=== PATIENT | female | born 1980 | race Caucasian/White ===

== ENCOUNTER 2016-08-11 18:52 | Emergency (ER) | payer MEDICAID ==
[~2016-08-11] VITALS: Ht 160 cm; Wt 85.7 kg
[~2016-08-11 18:52] MED LIST: BACT800T5 PO; HYDR-3533 PO; PHEN-426 PO; PROM25R PR; TYLE3 PO; XANA1TAB6 PO
[2016-08-11 19:06] VITALS: BP 132/90; PULSE 125; RESP 18; TEMP 98.4; O2SAT 98
[2016-08-11] MEDS ORDERED: TRAM1CAP21 PO (20:37)
[2016-08-11] MEDS ORDERED: XANA0.5T2 PO (20:37)
--- NOTE | 2016-08-11 20:58 | PD ---
HPI Chief Complaint: GI Complaint Time Seen by Provider: 20:47 Travel History International Travel<30 days: No Contact w/Intl Traveler<30days: No Traveled to known affect area: No History of Present Illness HPI The patient is a 35-year-old female that complains of bilateral flank pain, left greater than right for the past few days. She has had nausea and vomiting but has not recorded a fever at home. She denies any dysuria, frequency or urgency. She states there is no possibility of . The patient states she is on pain management with tramadol ER. PFSH Past Medical History Anxiety: Yes Diminished Hearing: No Musculoskeletal: Yes (chronic backpain) Respiratory: Yes (ASTHMA) Influenza Vaccination: No ?: Not LMP: 07/27/16 Tubal Ligation: Yes Past Surgical History Section: Yes (2014) Gynecologic Surgery: Yes (TUBAL LIGATION) Social History Alcohol Use: Yes (ocassional) Tobacco Use: No Substance Use: Yes (MARIJUANA coassional) Allergies-Medications (Allergen,Severity, Reaction): Coded Allergies: No Known Allergies (Unverified , 08/11/16) Reported Meds & Prescriptions Reported Meds & Active Scripts Active Reported Xanax Xr 24 HR (Alprazolam) 0.5 Mg Tab 0.5 Mg PO DAILY Take tablet intact, preferably in the morning. Tramadol ER 24 HR (Tramadol HCl) 100 Mg Caper 100 Mg PO DAILY Review of Systems Except as stated in HPI: all other systems reviewed are Neg Physical Exam Narrative GENERAL: The patient is alert, oriented 3 in moderate apparent distress with her bilateral flank pain. Her vital signs show heart rate 125 with blood pressure 132/90 but the rest the vital signs are normal. SKIN: Focused skin assessment warm/dry. HEAD: Atraumatic. Normocephalic. EYES: Pupils equal and round. No scleral icterus. No injection or drainage. ENT: No nasal bleeding or discharge. Mucous membranes pink and moist. NECK: Trachea midline. No JVD. CARDIOVASCULAR: Regular rate and rhythm. No murmur appreciated. RESPIRATORY: No accessory muscle use. Clear to auscultation. Breath sounds equal bilaterally. GASTROINTESTINAL: Abdomen soft, with tenderness over the left flank posteriorly and left suprapubic area and, to much lesser extent right flank, nondistended. Hepatic and splenic margins not palpable. No guarding or rebound is present. MUSCULOSKELETAL: No obvious deformities. No clubbing. No cyanosis. No edema. NEUROLOGICAL: Awake and alert. No obvious cranial nerve deficits. Motor grossly within normal limits. Normal speech. PSYCHIATRIC: The patient is anxious; insight and judgment normal. Data Data Last Documented VS Vital Signs Date Time Temp Pulse Resp B/P Pulse Ox O2 Delivery O2 Flow Rate FiO2 08/11/16 19:06 98.4 125 18 132/90 98 Orders Urinalysis - C+S If Indicated (08/11/16 20:47) Complete Blood Count With Diff (08/11/16 20:48) Basic Metabolic Panel (Bmp) (08/11/16 20:48) Ed Urine Pregnancytest Poc (08/11/16 20:48) Drug Screen, Random Urine (08/11/16 20:48) Ketorolac Inj (Toradol Inj) (08/11/16 21:00) Ondansetron Inj (Zofran Inj) (08/11/16 21:00) Sodium Chlor 0.9% 1000 Ml Inj (Ns 1000 M (08/11/16 21:15) Ct Abd/Pel W/O Iv Contrast (08/11/16 22:28) Hydromorphone Pf Inj (Dilaudid Pf Inj) (08/11/16 22:45) Labs Laboratory Tests Test 08/11/16 08/11/16 20:30 21:00 Urine Color YELLOW Urine Turbidity CLOUDY Urine pH 6.0 Urine Specific [place] 1.016 Urine Protein NEG mg/dL Urine Glucose (UA) NEG mg/dL Urine Ketones NEG mg/dL Urine Occult Blood MOD Urine Nitrite NEG Urine Bilirubin NEG Urine Leukocyte Esterase NEG Urine RBC 0-3 /hpf Urine WBC 3-5 /hpf Urine Squamous Epithelial > 8 /hpf Cells Microscopic Urinalysis Comment CULT NOT INDICATED Urine Opiates Screen NEG Urine Barbiturates Screen NEG Urine Amphetamines Screen NEG Urine Benzodiazepines Screen POS Urine Cocaine Screen NEG Urine Cannabinoids Screen POS White Blood Count 7.5 TH/MM3 Red Blood Count 4.49 MIL/MM3 Hemoglobin 13.1 GM/DL Hematocrit 38.4 % Mean Corpuscular Volume 85.5 FL Mean Corpuscular Hemoglobin 29.3 PG Mean Corpuscular Hemoglobin 34.3 % Concent Red Cell Distribution Width 12.6 % Platelet Count 316 TH/MM3 Mean Platelet Volume 8.4 FL Neutrophils (%) (Auto) 59.0 % Lymphocytes (%) (Auto) 30.9 % Monocytes (%) (Auto) 6.0 % Eosinophils (%) (Auto) 2.8 % Basophils (%) (Auto) 1.3 % Neutrophils # (Auto) 4.5 TH/MM3 Lymphocytes # (Auto) 2.3 TH/MM3 Monocytes # (Auto) 0.4 TH/MM3 Eosinophils # (Auto) 0.2 TH/MM3 Basophils # (Auto) 0.1 TH/MM3 CBC Comment DIFF FINAL Differential Comment Sodium Level 138 MEQ/L Potassium Level 3.9 MEQ/L Chloride Level 109 MEQ/L Carbon Dioxide Level 22.2 MEQ/L Anion Gap 7 MEQ/L Blood Urea Nitrogen 17 MG/DL Creatinine 0.65 MG/DL Estimat Glomerular Filtration 105 ML/MIN Rate Random Glucose 81 MG/DL Calcium Level 8.5 MG/DL MDM Medical Decision Making Medical Screen Exam Complete: Yes Emergency Medical Condition: Yes Medical Record Reviewed: Yes Interpretation(s) The urine shows moderate occult blood with 0-3 red cells and 3-5 white cells and culture is not indicated. The urine toxicology screen is positive for benzodiazepines and cannabinoids. The CBC is normal. The CT abdomen/pelvis without IV contrast shows no acute findings, no obstructive uropathy and there are bilateral tubal ligation clips. Appendicolith's are present without evidence for appendicitis. Differential Diagnosis Abdominal pain etiology undetermined, musculoskeletal pain, urinary tract infectionpyelonephritis, urinary stone Narrative Course The patient appears to have abdominal pain etiology undetermined. She complains severely of pain and yet nothing is found. She said the Toradol did not do anything. She is demanding of narcotics but E-[facility] evaluation showed nothing specific. It only showed recent Xanax and Soma prescriptions. Because she is borderline normal on the number of white cells in the urine and she does have some red cells in the urine she may have an early pyelonephritis. She says these are the same symptoms she had before with pyelonephritis. Plan: The patient be given Cipro for 10 days and Lortab 5 for pain. She should increase liquid intake and follow-up with her primary care physician next week. Diagnosis Primary Impression: Abdominal pain of unknown etiology Additional Impression: Pyelonephritis Additional Instructions: The Cipro is one tablet twice daily for 10 days. Do not drink alcohol or drive on the Lortab 5. Med/Other Pt SpecificInfo: Prescription(s) given Scripts Ciprofloxacin (Cipro)500 Mg Vhy710 Mg PO BID 10 Days Ref 0 Prov:Paras Torres MD 08/11/16 Hydrocodone-Acetaminophen (Lortab)5-325 Mg Tab1 Tab PO Q6H PRN (PAIN) #20 TAB Ref 0 Prov:Paras Torres MD 08/11/16 Disposition: 01 DISCHARGE HOME Condition: Stable Paras Torres MD Aug 11, 2016 20:58
[2016-08-11] MEDS ORDERED: KETOROLAC TROMETHAMINE 60 MG/2 ML (IM) VIAL IVP ONE (21:00)
[2016-08-11] MEDS ORDERED: ONDANSETRON HCL 4 MG/2 ML VIAL IV ONE (21:00)
[2016-08-11 21:10] LABS: AUTOMATED NEUTROPHIL # 4.5 TH/MM3 (1.8-7.7); BASOPHIL # 0.1 TH/MM3 (0-0.2); BASOPHIL % 1.3 % (0.0-2.0); EOSINOPHIL # 0.2 TH/MM3 (0-0.4); EOSINOPHIL % 2.8 % (0.0-4.0); HEMATOCRIT 38.4 % (35.0-46.0); HEMO FLAGS DIFF FINAL; LYMPH % 30.9 % (9.0-44.0); LYMPHOCYTE # 2.3 TH/MM3 (1.0-4.8); MEAN CELL VOLUME 85.5 FL (80.0-100.0); MEAN CORPUSCULAR HEMOGLOBIN 29.3 PG (27.0-34.0); MEAN CORPUSCULAR HGB CONC 34.3 % (32.0-36.0); PLATELET COUNT 316 TH/MM3 (150-450); RED BLOOD COUNT 4.49 MIL/MM3 (4.00-5.30); RED CELL DISTRIBUTION WIDTH 12.6 % (11.6-17.2); WHITE BLOOD COUNT 7.5 TH/MM3 (4.0-11.0)
[2016-08-11 21:12] LABS: GLUCOSE,URINE NEG (NEG); KETONE, URINE NEG (NEG); NITRITE,URINE NEG (NEG)
[2016-08-11 21:15] LABS: POTASSIUM 3.9 MEQ/L (3.5-5.1)
[2016-08-11] MEDS ORDERED: SODIUM CHLOR 0.9% 1000 ML INJ 1,000 ML IV SCH (21:15)
[2016-08-11 21:16] LABS: BLOOD, URINE MOD (NEG)
[2016-08-11 21:18] LABS: BICARBONATE 22.2 MEQ/L (21.0-32.0)
[2016-08-11 21:19] LABS: AMPHETAMINE, URINE NEG (NEG); BARBITURATES, URINE NEG (NEG)
[2016-08-11 21:25] LABS: COCAINE, URINE NEG (NEG)
[2016-08-11 21:41] LABS: URINE COLOR YELLOW (YELLW/STRAW)
[2016-08-11 21:42] LABS: COMMENT (UR) CULT NOT INDICATED; CULTURE IF INDICATED CULT NOT INDICATED; RBC, URINE 0-3 /hpf (0-3); SQUAMOUS EPITHELIAL CELL URINE > 8 /hpf (0-5)
[2016-08-11] MEDS ORDERED: HYDROmorphone HCL PF 1 MG/ML VIAL IVP ONE (22:45)
--- NOTE | 2016-08-11 23:11 | RADHPO ---
EXAM DATE/TIME: 08/11/2016 22:48 [facility] COMPARISON: No previous studies available for comparison. INDICATIONS : Vomiting and back pain. Evaluate for renal calculi. ORAL CONTRAST: No oral contrast ingested. RADIATION DOSE: 20.42 CTDIvol (mGy) MEDICAL HISTORY : None SURGICAL HISTORY : section. Tubal ligation. ENCOUNTER: Initial ACUITY: 2 days PAIN SCALE: 7/10 LOCATION: [facility] TECHNIQUE: Volumetric scanning of the abdomen and pelvis was performed. Using automated exposure control and ad justment of the mA and/or kV according to patient size, radiation dose was kept as low as reasonably achievable to obtain optimal diagnostic quality images. FINDINGS: Compare January 2016. No acute findings in the liver, spleen, adrenals, kidneys or pancreas. Specif ically no renal or ureteral calculi or evidence for obstructive uropathy. No bowel obstruction. No free air or free fluid. Incidental note made of bilateral tubal ligation clips. Small appendicoliths noted in the appendix bu t there is no appendiceal distention or inflammatory change. CONCLUSION: 1. No acute findings. Specifically no evidence for obstructive uropathy. Bilateral tubal ligation cli ps. Appendicoliths without evidence for appendicitis. Robert Islas MD on August 11, 2016 at 23:06 Board Certified Radiologist. This report was verified electronically.
[2016-08-11] MEDS ORDERED: HYDR-3533 PO (23:22)
[2016-08-11] MEDS ORDERED: CIPR-9 PO (23:22)
[2016-08-11] MEDS ORDERED: CIPROFLOXACIN 500 MG TAB PO ONE (23:30)
[2016-08-11 23:32] VITALS: BP 100/74
== END 2016-08-11 23:37 | disposition home or self-care (01) ==
LOC: PHED 18:52
DX: N12 Tubulo-interstitial nephritis, not specified as acute or chronic (principal); F12.90 Cannabis use, unspecified, uncomplicated; F19.90 Other psychoactive substance use, unspecified, uncomplicated; J45.909 Unspecified asthma, uncomplicated; F41.9 Anxiety disorder, unspecified; M54.9 Dorsalgia, unspecified; G89.29 Other chronic pain
CPT/HCPCS: 74176; 80048; 80307; 81001; 84703; 85025; 96361; 96374; 96375; 99284; J1170; J1885; J2405; J7030